=== PATIENT | male | born 1970 | race Caucasian/White ===

== ENCOUNTER → 2017-07-11 | Outpatient (CLI) | payer BC | LOC: PREOP 12:27 | PROVIDERS: ATTEND Surgery | DX: Z01.818 Encounter for other preprocedural examination (principal); L98.9 Disorder of the skin and subcutaneous tissue, unspecified ==

== ENCOUNTER 2017-07-12 09:13 | Day surgery (SDC) | payer BC ==
[~2017-07-12] VITALS: Ht 193 cm; Wt 137.9 kg
[~2017-07-12 09:13] MED LIST: BUPIVACAINE 0.5% 30 ML (SENSORCAINE) VIAL ONE; LIDOCAINE 1% INJ 20 ML (XYLOCAINE) VIAL ONE
[2017-07-12] MEDS ORDERED: MIDAZOLAM 2 MG/2 ML (VERSED) VIAL ONE (09:39)
[2017-07-12] MEDS ORDERED: PROPOFOL INJECTION 50 ML IV ONE (09:39)
[2017-07-12] MEDS ORDERED: fentaNYL INJECTION 100 MCG/2 ML AMP ONE (09:39)
[2017-07-12 09:43] VITALS: BP 136/90
[2017-07-12] MEDS ORDERED: LACTATED RINGERS 1,000 ML IV PRN (09:44)
--- OUTSIDE RECORDS SUMMARY | 2017-07-12 09:45 | XMS REPORT ---
Author Author JUANA MILLIGAN [facility] Address [address] [place], [place] [id number] Care Team Providers Care Food Order Delivery Runner Name Role Phone JUANA MILLIGAN PCP Unavailable Allergies and Adverse Reactions Name Reaction Notes NO KNOWN DRUG ALLERGIES Plan of Treatment Not available. Medications Active Name Start Date Estimated Completion Date SIG Comments simvastatin 80 mg oral tablet 06/09/2014 TAKE 1 TABLET BY MOUTH EVERY EVENING simvastatin 80 mg oral tablet 08/09/2015 TAKE 1 TABLET BY MOUTH EVERY EVENING lisinopril-hydrochlorothiazide 20-12.5 mg oral tablet 08/09/2015 TAKE 1 TABLET BY ORAL ROUTE 2 TIMES A DAY FOR 90 DAYS Xigduo XR 5-1,000 mg oral tablet, IR - ER, biphasic 24hr 09/29/2015 take 1 tablet by oral route once daily in the morning with food Keflex 500 mg oral capsule 12/20/2015 one PO TID fluticasone 50 mcg/actuation nasal spray,suspension 12/20/2015 inhale 1 spray (50 mcg) in each nostril by intranasal route 2 times per day fluticasone 50 mcg/actuation nasal spray,suspension 12/20/2015 inhale 1 spray (50 mcg) in each nostril by intranasal route 2 times per day Name Start Date Expiration Date SIG Comments Keflex 500 mg oral capsule 09/22/2010 10/02/2010 take 1 capsule by oral route 3 times a day for 10 days Zocor 80 mg oral tablet 10/18/2010 04/16/2011 take 1 tablet (80 mg) by oral route once daily in the evening for 90 days valacyclovir 500 mg oral tablet 05/18/2011 USE DIRECTED Medrol (Carter) 4 mg oral tablets,dose pack 11/10/2011 11/16/2011 take as directed for 6 days Zithromax Z-Carter 250 mg oral tablet 08/21/2012 08/26/2012 take 2 tablets ( 500 mg) by oral route once daily for 1 day then 1 tablet (250 mg) by oral route once daily for 4 days lisinopril-hydrochlorothiazide 20-12.5 mg oral tablet 06/17/2014 06/12/2015 take 1 tablet by oral route 2 times a day for 90 days Contrave 8-90 mg oral tablet extended release 01/12/2015 04/12/2015 take 2 tablets by oral route 2 times per day in the morning and evening for 30 days Zithromax Z-Carter 250 mg oral tablet 05/26/2015 05/31/2015 take 2 tablets (500 mg) by oral route once daily for 1 day then 1 tablet (250 mg) by oral route once daily for 4 days Medrol (Carter) 4 mg oral tablets,dose pack 05/26/2015 05/31/2015 take as directed for 5 days Keflex 500 mg oral capsule 06/11/2015 06/21/2015 take 1 capsule by oral route every 8 hours for 10 days Discontinued Name Start Date Discontinued Date SIG Comments pravastatin 40 mg oral tablet 10/04/2010 10/18/2010 TAKE 1 &1/2 TABLETS BY MOUTH EVERY DAY Problem List Description Status Onset Hypertension Active Diabetes Mellitus, Type II Active Herpes Simplex Of Lip, History Active Hyperlipidemia Active Vital Signs Date Time BP-Sys(mm[Hg] BP-Anali(mm[Hg]) HR(bpm) RR(rpm) Temp WT HT HC BMI BSA BMI Percentile O2 Sat(%) 12/20/2015 1:41:00 PM 148 mmHg 95 mmHg 80 bpm 16 rpm 98.4 F 305 lbs 76 in 37.13 kg/m2 2.72 m2 96 % 09/28/2015 10:08:00 AM 142 mmHg 98 mmHg 104 bpm 18 rpm 98.2 F 316 lbs 76 in 38.4643 kg/m 2.7724 m 98 % 01/11/2015 1:53:00 PM 140 mmHg 90 mmHg 72 bpm 18 rpm 98 F 317 lbs 76 in 38.59 kg/m2 2.78 m2 98 % 10/02/2013 2:13:00 PM 134 mmHg 78 mmHg 86 bpm 18 rpm 98.6 F 307 lbs 74 in 39.4161 kg/m 2.6964 m 98 % 05/28/2013 9:56:00 AM 144 mmHg 80 mmHg 80 bpm 20 rpm 98.4 F 304 lbs 74 in 39.03 kg/m2 2.68 m2 98 % 04/08/2013 8:35:00 AM 128 mmHg 80 mmHg 81 bpm 16 rpm 97.3 F 303.5 lbs 74 in 38.9667 kg/m 2.681 m 98 % 11/06/2012 9:38:00 AM 142 mmHg 82 mmHg 76 bpm 16 rpm 98 F 314.5 lbs 74 in 40.38 kg/m2 2.73 m2 98 % 10/07/2012 1:30:00 PM 144 mmHg 80 mmHg 100 bpm 20 rpm 98 F 324.312 lbs 74 in 41.6388 kg/m 2.7714 m 98 % 08/21/2012 9:21:00 AM 152 mmHg 80 mmHg 74 bpm 18 rpm 97.4 F 326 lbs 74 in 41.86 kg/m2 2.78 m2 99 % 11/03/2010 10:58:00 AM 144 mmHg 90 mmHg 80 bpm 316 lbs Social History Name Description Comments Tobacco Never smoker Alcohol Use some college Active but no formal exercise Uses seatbelts History of Procedures Date Ordered Description Order Status 05/22/2011 12:00 AM ROUTINE VENIPUNCTURE Reviewed 05/22/2011 12:00 AM COMPLETE CBC W/AUTO DIFF WBC Reviewed 05/22/2011 12:00 AM COMPREHEN METABOLIC PANEL Reviewed 05/22/2011 12:00 AM LIPID PANEL Reviewed 10/02/2012 12:00 AM ROUTINE VENIPUNCTURE Reviewed 10/02/2012 12:00 AM GLYCOSYLATED HEMOGLOBIN TEST Reviewed 10/02/2012 12:00 AM COMPLETE CBC W/AUTO DIFF WBC Reviewed 10/02/2012 12:00 AM COMPREHEN METABOLIC PANEL Reviewed 10/02/2012 12:00 AM LIPID PANEL Reviewed 11/06/2012 12:00 AM CAPILLARY BLOOD DRAW Reviewed 11/06/2012 12:00 AM GLUCOSE BLOOD TEST Reviewed 11/06/2012 12:00 AM GLUCOSE BLOOD TEST Reviewed 04/01/2013 12:00 AM ROUTINE VENIPUNCTURE Reviewed 04/01/2013 12:00 AM GLYCOSYLATED HEMOGLOBIN TEST Reviewed 04/01/2013 12:00 AM COMPREHEN METABOLIC PANEL Reviewed 04/01/2013 12:00 AM LIPID PANEL Reviewed 04/01/2013 12:00 AM GLUCOSE BLOOD TEST Reviewed 04/01/2013 12:00 AM GLUCOSE BLOOD TEST Reviewed 10/02/2013 12:00 AM URINALYSIS AUTO W/O SCOPE Reviewed 10/02/2013 12:00 AM URINALYSIS AUTO W/O SCOPE Reviewed 11/10/2013 12:00 AM COMPLETE CBC W/AUTO DIFF WBC Reviewed 11/10/2013 12:00 AM COMPREHEN METABOLIC PANEL Reviewed 11/10/2013 12:00 AM GLYCOSYLATED HEMOGLOBIN TEST Reviewed 11/10/2013 12:00 AM LIPID PANEL Reviewed 11/10/2013 12:00 AM MICROALBUMIN QUANTITATIVE Reviewed 10/04/2010 12:00 AM ROUTINE VENIPUNCTURE Reviewed 10/04/2010 12:00 AM COMPLETE CBC W/AUTO DIFF WBC Reviewed 10/04/2010 12:00 AM COMPREHEN METABOLIC PANEL Reviewed 10/04/2010 12:00 AM LIPID PANEL Reviewed 01/05/2015 12:00 AM COMPLETE CBC W/AUTO DIFF WBC Returned 01/05/2015 12:00 AM COMPREHEN METABOLIC PANEL Returned 01/05/2015 12:00 AM GLYCOSYLATED HEMOGLOBIN TEST Returned 01/05/2015 12:00 AM LIPID PANEL Returned 01/05/2015 12:00 AM ROUTINE VENIPUNCTURE Reviewed Results Summary Data and Description Results 10/04/2010 3:48 PM TRIGLYCERIDES 211.0 mg/dLCHOLESTEROL 242.0 mg/dLHDL 44.0 mg/ dLLDL 164.0 mg/dLGLUCOSE 114.0 mg/dLSODIUM 137.0 mmol/LPOTASSIUM 4.40 mmol/ LCHLORIDE 103.0 mmol/LCO2 22.0 mmol/LBUN 16.0 mg/dLCREATININE 0.90 mg/dLSGOT/ AST 21.0 IU/LSGPT/ALT 38.0 IU/LALK PHOS 60.0 IU/LTOTAL PROTEIN 7.0 g/dLALBUMIN 4.30 g/dLTOTAL BILI 0.60 mg/dLCALCIUM 9.80 mg/dLeGFR >60 mL/min/1.73 m2WBC 6.2 RBC 5.33 HGB 15.20 g/dLHCT 43.40 %MCV 81.0 fLMCH 28.50 pgMCHC 35.0 g/dLRDW CV 13.0 %MPV 11.0 fLPLT 194 %NEUT 62.60 %%LYMP 27.10 %%MONO 8.70 %%EOS 1.10 %%BASO 0.50 %#NEUT 3.88 #LYMP 1.68 #MONO 0.54 #EOS 0.07 #BASO 0.03 05/22/2011 4:29 PM WBC 6.6 RBC 4.82 HGB 14.30 g/dLHCT 40.0 %MCV 83.0 fLMCH 29.70 pgMCHC 35.80 g/dLRDW CV 12.90 %MPV 11.60 fLPLT 190 %NEUT 62.20 %%LYMP 28.90 %%MONO 7.20 %%EOS 1.40 %%BASO 0.30 %#NEUT 4.13 #LYMP 1.92 #MONO 0.48 #EOS 0.09 #BASO 0.02 GLUCOSE 125.0 mg/dLSODIUM 139.0 mmol/LPOTASSIUM 4.10 mmol/ LCHLORIDE 105.0 mmol/LCO2 20.0 mmol/LBUN 16.0 mg/dLCREATININE 0.90 mg/dLSGOT/ AST 16.0 IU/LSGPT/ALT 25.0 IU/LALK PHOS 59.0 IU/LTOTAL PROTEIN 6.90 g/dLALBUMIN 4.20 g/dLTOTAL BILI 0.40 mg/dLCALCIUM 9.80 mg/dLeGFR >60 mL/min/1.73 [id number] 226.0 mg/dLCHOLESTEROL 207.0 mg/dLHDL 41.0 mg/dLLDL (CALC) 121.0 mg/dL 10/02/2012 10:00 AM WBC 7.7 RBC 5.20 HGB 14.80 g/dLHCT 42.60 %MCV 82.0 fLMCH 28.50 pgMCHC 34.70 g/dLRDW CV 12.90 %MPV 10.70 fLPLT 198 %NEUT 71.20 %%LYMP 21.10 %%MONO 6.10 %%EOS 1.30 %%BASO 0.30 %#NEUT 5.50 #LYMP 1.63 #MONO 0.47 #EOS 0.10 #BASO 0.02 GLUCOSE 159.0 mg/dLSODIUM 141.0 mmol/LPOTASSIUM 3.90 mmol/ LCHLORIDE 105.0 mmol/LCO2 23.0 mmol/LBUN 19.0 mg/dLCREATININE 1.0 mg/dLSGOT/AST 16.0 IU/LSGPT/ALT 28.0 IU/LALK PHOS 59.0 IU/LTOTAL PROTEIN 7.0 g/dLALBUMIN 4.50 g/dLTOTAL BILI 0.70 mg/dLCALCIUM 9.70 mg/dLeGFR 60 TRIGLYCERIDES 236.0 mg/ dLCHOLESTEROL 247.0 mg/dLHDL 38.0 mg/dLLDL 170.0 mg/dL 04/01/2013 3:41 PM TRIGLYCERIDES 184.0 mg/dLCHOLESTEROL 202.0 mg/dLHDL 40.0 mg/ dLLDL 132.0 mg/dLGLUCOSE 123.0 mg/dLSODIUM 141.0 mmol/LPOTASSIUM 3.80 mmol/ LCHLORIDE 107.0 mmol/LCO2 24.0 mmol/LBUN 19.0 mg/dLCREATININE 0.80 mg/dLSGOT/ AST 16.0 IU/LSGPT/ALT 23.0 IU/LALK PHOS 51.0 IU/LTOTAL PROTEIN 6.90 g/dLALBUMIN 4.10 g/dLTOTAL BILI 0.80 mg/dLCALCIUM 9.60 mg/dLeGFR 60 HGB A1C 6.0 %Est Avg Glucose 125.5 mg/dL 11/10/2013 3:53 PM CREAT UR 193.10 mg/dLMICROALBUMIN UR 75.0 ug/mLALB:CREAT RATIO 39 TRIGLYCERIDES 164.0 mg/dLCHOLESTEROL 196.0 mg/dLHDL 43.0 mg/dLLDL 112.0 mg/dLGLUCOSE 134.0 mg/dLSODIUM 140.0 mmol/LPOTASSIUM 3.90 mmol/LCHLORIDE 104.0 mmol/LCO2 24.0 mmol/LBUN 16.0 mg/dLCREATININE 0.90 mg/dLSGOT/AST 19.0 IU/ LSGPT/ALT 31.0 IU/LALK PHOS 57.0 IU/LTOTAL PROTEIN 7.0 g/dLALBUMIN 4.40 g/ dLTOTAL BILI 0.60 mg/dLCALCIUM 10.20 mg/dLeGFR >60 mL/min/1.73 m2WBC 7.7 RBC 5.21 HGB 15.0 g/dLHCT 42.50 %MCV 82.0 fLMCH 28.80 pgMCHC 35.30 g/dLRDW CV 13.20 %MPV 10.90 fLPLT 178 %NEUT 62.50 %%LYMP 28.10 %%MONO 7.20 %%EOS 1.90 %%BASO 0.30 %#NEUT 4.83 #LYMP 2.17 #MONO 0.56 #EOS 0.15 #BASO 0.02 EOS 1.0 %HGB A1C 5.80 %Est Avg Glucose 119.8 mg/dL 01/05/2015 3:20 PM WBC 6.8 RBC 5.24 HGB 15.0 g/dLHCT 43.40 %MCV 83.0 fLMCH 28.60 pgMCHC 34.60 g/dLRDW CV 13.10 %MPV 10.70 fLPLT 180 %NEUT 63.80 %%LYMP 26.80 %%MONO 7.60 %%EOS 1.50 %%BASO 0.30 %#NEUT 4.31 #LYMP 1.81 #MONO 0.51 #EOS 0.10 #BASO 0.02 TRIGLYCERIDES 240.0 mg/dLCHOLESTEROL 222.0 mg/dLHDL 40.0 mg/ dLLDL 142.0 mg/dLGLUCOSE 145.0 mg/dLSODIUM 142.0 mmol/LPOTASSIUM 4.30 mmol/ LCHLORIDE 104.0 mmol/LCO2 26.0 mmol/LBUN 16.0 mg/dLCREATININE 1.0 mg/dLSGOT/AST 14.0 IU/LSGPT/ALT 25.0 IU/LALK PHOS 59.0 IU/LTOTAL PROTEIN 7.20 g/dLALBUMIN 3.70 g/dLTOTAL BILI 0.80 mg/dLCALCIUM 9.80 mg/dLeGFR >60 mL/min/1.73 m2HGB A1C 6.0 %Est Avg Glucose 125.5 mg/dL History Of Immunizations Not available. History of Past Illness Name Date of Onset Comments Hypertension Diabetes Mellitus, Type II Herpes Simplex Of Lip, History Hyperlipidemia Coronary Artery Disease Oct 04 2010 8:49AM Hypertension Oct 04 2010 8:49AM Hyperlipidemia Oct 04 2010 8:49AM Essential Hypertension Nov 03 2010 10:59AM Diabetes Mellitus, Type II Nov 03 2010 10:59AM Hyperlipidemia, unspecified Nov 03 2010 10:59AM General Medical Exam, Adult Nov 03 2010 10:59AM Body Mass Index [BMI]; body mass index between 30-39, adult; body mass index 30.0-30.9, adult Nov 03 2010 10:59AM Coronary Artery Disease May 22 2011 8:35AM Hypertension May 22 2011 8:35AM Cough Aug 21 2012 9:22AM Post-nasal drainage Aug 21 2012 9:22AM Upper Respiratory Infection Aug 21 2012 9:22AM Hypertension Oct 02 2012 12:42PM Diabetes Mellitus, Type II Oct 02 2012 12:42PM Hyperlipidemia Oct 02 2012 12:42PM Essential Hypertension Oct 07 2012 1:30PM Diabetes Mellitus, Type II Oct 07 2012 1:30PM Hyperlipidemia, unspecified Oct 07 2012 1:30PM Obesity Oct 07 2012 1:30PM Essential Hypertension Nov 06 2012 9:39AM Diabetes Mellitus, Type II Nov 06 2012 9:39AM Hyperlipidemia, unspecified Nov 06 2012 9:39AM Exercise Counseling Nov 06 2012 9:39AM Dietary Counseling Nov 06 2012 9:39AM Hypertension Apr 01 2013 8:40AM Diabetes Mellitus, Type II Apr 01 2013 8:40AM Hyperlipidemia Apr 01 2013 8:40AM Essential Hypertension Apr 08 2013 8:38AM Diabetes Mellitus, Type II Apr 08 2013 8:38AM Hyperlipidemia, unspecified Apr 08 2013 8:38AM Obesity Apr 08 2013 8:38AM Exercise Counseling Apr 08 2013 8:38AM Dietary Counseling Apr 08 2013 8:38AM Diabetes Mellitus, Type II May 28 2013 9:56AM Cellulitis May 28 2013 9:56AM Open wound of knee, leg [except thigh], and ankle; without mention of complication May 28 2013 9:56AM DOT Physical Oct 02 2013 1:55PM Hypertension Nov 10 2013 9:51AM Diabetes Mellitus, Type II Nov 10 2013 9:51AM Hyperlipidemia Nov 10 2013 9:51AM Hypertension Jan 05 2015 11:34AM Diabetes Mellitus, Type II Jan 05 2015 11:34AM Hyperlipidemia Jan 05 2015 11:34AM Dietary Counseling Jan 11 2015 1:54PM Exercise Counseling Jan 11 2015 1:54PM Body Mass Index [BMI]; body mass index between 30-39, adult; body mass index 32.0-32.9, adult Jan 11 2015 1:54PM Hypertension Jan 11 2015 1:54PM Diabetes Mellitus, Type II Jan 11 2015 1:54PM Hyperlipidemia Jan 11 2015 1:54PM Abscess Of Trunk Jul 12 2015 12:08PM Sebaceous Cyst, Mid-back Aug 23 2015 10:20AM Postoperative Follow-up Sep 06 2015 8:58AM DOT Physical Sep 28 2015 10:08AM Acute pharyngitis, unspecified etiology Dec 20 2015 1:42PM Nasal congestion Dec 20 2015 1:42PM Hypertension Feb 10 2016 8:36AM Diabetes Mellitus, Type II Feb 10 2016 8:36AM Hyperlipidemia Feb 10 2016 8:36AM Payers Insurance Name Company Name Plan Name Plan Number Policy Number Policy Group Number Start Date BCBS [facility]c[employer] [facility] [id number] N/A History of Encounters Visit Date Visit Type Provider 02/10/2016 Office visit JUANA MACKAY 12/20/2015 Office visit JUANA MACKAY 09/28/2015 Office visit JUANA MACKAY 09/06/2015 Office visit Juana Shoemaker MD 08/23/2015 Office visit Juana Shoemaker MD 07/12/2015 Procedures Juana Shoemaker MD 01/11/2015 Office visit JUANA MACKAY 01/05/2015 Office visit JUANA MACKAY 11/10/2013 Office visit JUANA MACKAY 10/02/2013 Office visit JUANA MACKAY 05/28/2013 Office visit JUANA MACKAY 04/08/2013 Office visit JUANA MACKAY 04/01/2013 Office visit JUANA MACKAY 11/06/2012 Office visit JUANA MACKAY 10/07/2012 Office visit JUANA MACKAY 10/02/2012 Office visit JUANA MACKAY 08/21/2012 Office visit JUANA MACKAY 05/22/2011 Office visit Juana Milligan PA-C 11/03/2010 Office visit Juana Milligan PA-C 10/04/2010 Office visit Juana MACKAY-C 08/12/2009 Laboratory Juana Milligan PA-C 08/12/2009 Laboratory Juana Milligan PA-C 05/20/2009 Office visit JUANA MACKAY
--- OUTSIDE RECORDS SUMMARY | 2017-07-12 09:46 | XMS REPORT ---
Author Author PHIL MILLIGAN [facility] Address [address] [place], [place] [id number] Care Team Providers Care Safety Net Maker Name Role Phone PHIL MILLIGAN PCP Unavailable PHIL MILLIGAN PreferredProvider Unavailable Allergies and Adverse Reactions Name Reaction [...] once daily in the morning with food fluticasone 50 mcg/actuation nasal spray,suspension 12/20/2015 inhale 1 spray (50 mcg) in each nostril by intranasal route 2 times per day Contour Next Strips miscellaneous strip 04/06/2016 use as directed test once daily Microlet Lancet miscellaneous misc 04/06/2016 use as directed test once daily Xigduo XR 5-1,000 mg oral tablet, IR - ER, biphasic 24hr 08/14/2016 TAKE 1 TABLET BY MOUTH EVERY MORNING WITH FOOD simvastatin 80 mg oral tablet 09/14/2016 TAKE 1 TABLET BY MOUTH EVERY EVENING lisinopril-hydrochlorothiazide 20-12.5 mg oral tablet 09/20/2016 TAKE 1 TABLET BY ORAL ROUTE 2 TIMES A DAY FOR 90 DAYS Name Start Date Expiration Date SIG Comments [...] 1 &1/2 TABLETS BY MOUTH EVERY DAY Keflex 500 mg oral capsule 12/20/2015 02/13/2016 one PO TID Problem List Description Status Onset Hypertension Active Diabetes Mellitus, Type II Active Herpes Simplex Of Lip, History Active Hyperlipidemia Active Cramp of both lower extremities Active 02/13/2016 Microalbuminuria due to type 2 diabetes mellitus Active 02/13/2016 Vital Signs Date Time BP-Sys(mm[Hg] BP-Anali(mm[Hg]) HR(bpm) RR(rpm) Temp WT HT HC BMI BSA BMI Percentile O2 Sat(%) 09/21/2016 10:10:00 AM 140 mmHg 90 mmHg 76 bpm 18 rpm 96.5 F 308 lbs 74 in 39.54 kg/m2 2.70 m2 98 % 02/10/2016 8:58:00 AM 132 mmHg 80 mmHg 80 bpm 18 rpm 97.2 F 303 lbs 74 in 38.9025 kg/m 2.6788 m 97 % 12/20/2015 1:41:00 PM 148 mmHg 95 mmHg [...] Reviewed 05/22/2011 12:00 AM LIPID PANEL Reviewed 07/05/2016 12:00 AM CALCULUS SPECTROSCOPY Returned 10/02/2012 12:00 AM ROUTINE VENIPUNCTURE Reviewed 10/02/2012 [...] AM COMPLETE CBC W/AUTO DIFF WBC Reviewed 01/05/2015 12:00 AM COMPREHEN METABOLIC PANEL Reviewed 01/05/2015 12:00 AM GLYCOSYLATED HEMOGLOBIN TEST Reviewed 01/05/2015 12:00 AM LIPID PANEL Reviewed 01/05/2015 12:00 AM ROUTINE VENIPUNCTURE Reviewed Results Summary Data and Description Results 10/04/2010 3:48 PM TRIGLYCERIDES 211.0 mg/dLCHOLESTEROL 242.0 mg/dLHDL 44.0 mg/ dLTOT CHOL/HDL 5.5 LDL 164.0 mg/dLGLUCOSE 114.0 mg/dLSODIUM 137.0 mmol/ LPOTASSIUM 4.40 mmol/LCHLORIDE 103.0 mmol/LCO2 22.0 mmol/LBUN 16.0 mg/ dLCREATININE 0.90 mg/dLSGOT/AST 21.0 IU/LSGPT/ALT 38.0 IU/LALK PHOS 60.0 IU/ LTOTAL PROTEIN 7.0 g/dLALBUMIN 4.30 g/dLTOTAL BILI 0.60 mg/dLCALCIUM 9.80 mg/ dLAGE 40 GFR NonAA 70 GFR AA 85 eGFR >60 mL/min/1.73 m2eGFR AA* >60 WBC 6.2 RBC 5.33 HGB 15.20 g/dLHCT 43.40 %MCV 81.0 fLMCH 28.50 pgMCHC 35.0 g/dLRDW SD 38 RDW CV 13.0 %MPV 11.0 fLPLT 194 NRBC# 0.00 NRBC% 0.0 %NEUT 62.60 %%LYMP 27.10 %% MONO 8.70 %%EOS 1.10 %%BASO 0.50 %#NEUT 3.88 #LYMP 1.68 #MONO 0.54 #EOS 0.07 # BASO 0.03 MANUAL DIFF NOT IND 05/22/2011 4:29 PM WBC 6.6 RBC 4.82 HGB 14.30 g/dLHCT 40.0 %MCV 83.0 fLMCH 29.70 pgMCHC 35.80 g/dLRDW SD 39 RDW CV 12.90 %MPV 11.60 fLPLT 190 NRBC# 0.00 NRBC% 0.0 %NEUT 62.20 %%LYMP 28.90 %%MONO 7.20 %%EOS 1.40 %%BASO 0.30 %#NEUT 4.13 #LYMP 1.92 #MONO 0.48 #EOS 0.09 #BASO 0.02 MANUAL DIFF NOT IND GLUCOSE 125.0 mg/dLSODIUM 139.0 mmol/LPOTASSIUM 4.10 mmol/LCHLORIDE 105.0 mmol/LCO2 20.0 mmol/LBUN 16.0 mg/dLCREATININE 0.90 mg/dLSGOT/AST 16.0 IU/LSGPT/ALT 25.0 IU /LALK PHOS 59.0 IU/LTOTAL PROTEIN 6.90 g/dLALBUMIN 4.20 g/dLTOTAL BILI 0.40 mg/ dLCALCIUM 9.80 mg/dLAGE 40 GFR NonAA 70 GFR AA 85 eGFR >60 mL/min/1.73 m2eGFR AA * >60 TRIGLYCERIDES 226.0 mg/dLCHOLESTEROL 207.0 mg/dLHDL 41.0 mg/dLTOT CHOL/ HDL 5.0 LDL (CALC) 121.0 mg/dL 10/02/2012 10:00 AM WBC 7.7 RBC 5.20 HGB 14.80 g/dLHCT 42.60 %MCV 82.0 fLMCH 28.50 pgMCHC 34.70 g/dLRDW SD 39 RDW CV 12.90 %MPV 10.70 fLPLT 198 NRBC# 0.00 NRBC% 0.0 %NEUT 71.20 %%LYMP 21.10 %%MONO 6.10 %%EOS 1.30 %%BASO 0.30 %#NEUT 5.50 #LYMP 1.63 #MONO 0.47 #EOS 0.10 #BASO 0.02 MANUAL DIFF NOT IND GLYCOHEMOGLOBIN A1C 7.30 %GLUCOSE 159.0 mg/dLSODIUM 141.0 mmol/LPOTASSIUM 3.90 mmol/LCHLORIDE 105.0 mmol/LCO2 23.0 mmol/LBUN 19.0 mg/dLCREATININE 1.0 mg/dLSGOT /AST 16.0 IU/LSGPT/ALT 28.0 IU/LALK PHOS 59.0 IU/LTOTAL PROTEIN 7.0 g/dLALBUMIN 4.50 g/dLTOTAL BILI 0.70 mg/dLCALCIUM 9.70 mg/dLAGE 42 GFR NonAA 61 GFR AA 74 eGFR 60 eGFR AA* 60 TRIGLYCERIDES 236.0 mg/dLCHOLESTEROL 247.0 mg/dLHDL 38.0 mg/ dLTOT CHOL/HDL 6.5 LDL 170.0 mg/dL 04/01/2013 3:41 PM TRIGLYCERIDES 184.0 mg/dLCHOLESTEROL 202.0 mg/dLHDL 40.0 mg/ dLTOT CHOL/HDL 5.1 LDL 132.0 mg/dLGLUCOSE 123.0 mg/dLSODIUM 141.0 mmol/ LPOTASSIUM 3.80 mmol/LCHLORIDE 107.0 mmol/LCO2 24.0 mmol/LBUN 19.0 mg/ dLCREATININE 0.80 mg/dLSGOT/AST 16.0 IU/LSGPT/ALT 23.0 IU/LALK PHOS 51.0 IU/ LTOTAL PROTEIN 6.90 g/dLALBUMIN 4.10 g/dLTOTAL BILI 0.80 mg/dLCALCIUM 9.60 mg/ dLAGE 42 GFR NonAA 107 GFR AA 130 eGFR 60 eGFR AA* 60 HGB A1C 6.0 %Est Avg Glucose 125.5 mg/dL 11/10/2013 3:53 PM CREAT UR 193.10 mg/dLMICROALBUMIN UR 75.0 ug/mLALB:CREAT RATIO 39 TRIGLYCERIDES 164.0 mg/dLCHOLESTEROL 196.0 mg/dLHDL 43.0 mg/dLTOT CHOL/ HDL 4.6 LDL 112.0 mg/dLGLUCOSE 134.0 mg/dLSODIUM 140.0 mmol/LPOTASSIUM 3.90 mmol /LCHLORIDE 104.0 mmol/LCO2 24.0 mmol/LBUN 16.0 mg/dLCREATININE 0.90 mg/dLSGOT/ AST 19.0 IU/LSGPT/ALT 31.0 IU/LALK PHOS 57.0 IU/LTOTAL PROTEIN 7.0 g/dLALBUMIN 4.40 g/dLTOTAL BILI 0.60 mg/dLCALCIUM 10.20 mg/dLAGE 43 GFR NonAA 93 GFR AA 113 eGFR >60 mL/min/1.73 m2eGFR AA* >60 WBC 7.7 RBC 5.21 HGB 15.0 g/dLHCT 42.50 % MCV 82.0 fLMCH 28.80 pgMCHC 35.30 g/dLRDW SD 39 RDW CV 13.20 %MPV 10.90 fLPLT 178 NRBC# 0.06 NRBC% 0.8 %NEUT 62.50 %%LYMP 28.10 %%MONO 7.20 %%EOS 1.90 %%BASO 0.30 %#NEUT 4.83 #LYMP 2.17 #MONO 0.56 #EOS 0.15 #BASO 0.02 MANUAL DIFF SEE BELOW SEGS 68 LYMPHS 27 MONOS 4 EOS 1.0 %HGB A1C 5.80 %Est Avg Glucose 119.8 mg/ dL 01/05/2015 3:20 PM WBC 6.8 RBC 5.24 HGB 15.0 g/dLHCT 43.40 %MCV 83.0 fLMCH 28.60 pgMCHC 34.60 g/dLRDW SD 39 RDW CV 13.10 %MPV 10.70 fLPLT 180 NRBC# 0.00 NRBC% 0.0 %NEUT 63.80 %%LYMP 26.80 %%MONO 7.60 %%EOS 1.50 %%BASO 0.30 %#NEUT 4.31 #LYMP 1.81 #MONO 0.51 #EOS 0.10 #BASO 0.02 MANUAL DIFF NOT IND TRIGLYCERIDES 240.0 mg/dLCHOLESTEROL 222.0 mg/dLHDL 40.0 mg/dLTOT CHOL/HDL 5.6 LDL 142.0 mg/dLGLUCOSE 145.0 mg/dLSODIUM 142.0 mmol/LPOTASSIUM 4.30 mmol/ LCHLORIDE 104.0 mmol/LCO2 26.0 mmol/LBUN 16.0 mg/dLCREATININE 1.0 mg/dLSGOT/AST 14.0 IU/LSGPT/ALT 25.0 IU/LALK PHOS 59.0 IU/LTOTAL PROTEIN 7.20 g/dLALBUMIN 3.70 g/dLTOTAL BILI 0.80 mg/dLCALCIUM 9.80 mg/dLAGE 44 GFR NonAA 82 GFR AA 99 eGFR >60 mL/min/1.73 m2eGFR AA* >60 HGB A1C 6.0 %Est Avg Glucose 125.5 mg/dL 02/10/2016 4:00 PM WBC 6.3 RBC 5.43 HGB 15.30 g/dLHCT 45.50 %MCV 84.0 fLMCH 28.20 pgMCHC 33.60 g/dLRDW SD 40 RDW CV 13.10 %MPV 10.50 fLPLT 187 NRBC# 0.00 NRBC% 0.0 %NEUT 67.80 %%LYMP 22.80 %%MONO 7.30 %%EOS 1.30 %%BASO 0.50 %#NEUT 4.24 #LYMP 1.43 #MONO 0.46 #EOS 0.08 #BASO 0.03 MANUAL DIFF NOT IND MICROALBUMIN UR 59.0 ug/mLGLUCOSE 146.0 mg/dLSODIUM 140.0 mmol/LPOTASSIUM 4.30 mmol/LCHLORIDE 103.0 mmol/LCO2 27.0 mmol/LBUN 20.0 mg/dLCREATININE 0.90 mg/ dLSGOT/AST 19.0 IU/LSGPT/ALT 34.0 IU/LALK PHOS 57.0 IU/LTOTAL PROTEIN 6.70 g/ dLALBUMIN 4.70 g/dLTOTAL BILI 0.70 mg/dLCALCIUM 9.60 mg/dLAGE 45 GFR NonAA 92 GFR AA 112 eGFR >60 mL/min/1.73meGFR AA* >60 TRIGLYCERIDES 198.0 mg/ dLCHOLESTEROL 259.0 mg/dLHDL 48.0 mg/dLTOT CHOL/HDL 5.4 LDL 175.0 mg/ dLHemoglobin A1c 6.50 %Estim. Avg Glu (eAG) 140 07/05/2016 3:40 PM Color [place] Size 5x3x2 Weight 34.3 Ca oxalate dihydrate POINT OF CARE SPECIALIST %Ca oxalate monohydr. POINT OF CARE SPECIALIST RatioCalcium phosphate POINT OF CARE SPECIALIST %Magnesium damian phos POINT OF CARE SPECIALIST Uric acid 100 Uric acid dihydrate POINT OF CARE SPECIALIST RatioAmmonium acid urate POINT OF CARE SPECIALIST %Sodium acid urate POINT OF CARE SPECIALIST Ca hydrogen phos. POINT OF CARE SPECIALIST %Cystine POINT OF CARE SPECIALIST %Cholesterol POINT OF CARE SPECIALIST %Calcium bilirubinate POINT OF CARE SPECIALIST %Calcium carbonate POINT OF CARE SPECIALIST %Triamterene POINT OF CARE SPECIALIST %Newberyite POINT OF CARE SPECIALIST %Dried Blood POINT OF CARE SPECIALIST Cellular Material POINT OF CARE SPECIALIST Shell POINT OF CARE SPECIALIST Surface Crystals POINT OF CARE SPECIALIST Comment POINT OF CARE SPECIALIST Comment POINT OF CARE SPECIALIST History Of Immunizations Not available. History of [...] index 30.0-30.9, adult Nov 03 2010 10:59AM Cramp of both lower extremities 02/13/2016 Microalbuminuria due to type 2 diabetes mellitus 02/13/2016 Coronary Artery Disease May 22 2011 8:35AM [...] 2016 8:36AM Hyperlipidemia Feb 10 2016 8:36AM Type 2 diabetes mellitus without complication Feb 10 2016 8:59AM Morbid obesity due to excess calories Feb 10 2016 8:59AM Dietary Counseling Feb 10 2016 8:59AM Exercise Counseling Feb 10 2016 8:59AM Hypertension Feb 10 2016 8:59AM Hyperlipidemia Feb 10 2016 8:59AM Cramp of both lower extremities Feb 10 2016 8:59AM Acute Microalbuminuria due to type 2 diabetes mellitus Feb 10 2016 8:59AM Calculus (=stone) Jul 05 2016 8:49AM Encounter for CDL (commercial driving license) exam Sep 21 2016 10:10AM Payers Insurance Name Company Name Plan Name Plan Number Policy Number Policy Group Number Start Date [employer] [place] [id number] N/A [employer] [place] [id number] N/A History of Encounters Visit Date Visit Type Provider 09/21/2016 Office visit PHIL MACKAY 02/10/2016 Office visit PHIL MACKAY 12/20/2015 Office visit PHIL MACKAY 09/28/2015 Office visit PHIL MACKAY 09/06/2015 Office visit Phil Shoemaker MD 08/23/2015 Office visit Phil Shoemaker MD 07/12/2015 Procedures Phil Shoemaker MD 01/11/2015 Office visit PHIL MACKAY 01/05/2015 Office visit PHIL MACKAY 11/10/2013 Office visit PHIL MACKAY 10/02/2013 Office visit PHIL MACKAY 05/28/2013 Office visit PHIL MACKAY 04/08/2013 Office visit PHIL MACKAY 04/01/2013 Office visit PHIL MACKAY 11/06/2012 Office visit PHIL MACKAY 10/07/2012 Office visit PHIL MILLIGAN PA 10/02/2012 Office visit PHIL MACKAY 08/21/2012 Office visit PHIL MACKAY 05/22/2011 Office visit Phil Milligan PA-C 11/03/2010 Office visit Phil Milligan PA-C 10/04/2010 Office visit Phil Milligan PA-C 08/12/2009 Laboratory Phil Milligan PA-C 08/12/2009 Laboratory Phil Milligan PA-C 05/20/2009 Office visit PHIL MACKAY
--- OUTSIDE RECORDS SUMMARY | 2017-07-12 09:47 | XMS REPORT ---
Author Author JUANA MILLIGAN [facility] Address [address] [place], [place] [address] Care Team Providers Care Lineman Service Or Work Dispatcher Name Role Phone JUANA MILLIGAN PCP Unavailable [...] once daily in the morning with food Name Start Date Expiration Date SIG Comments [...] HC BMI BSA BMI Percentile O2 Sat(%) 09/28/2015 10:08:00 AM 142 mmHg 98 mmHg 104 bpm 18 rpm 98.2 F 316 lbs 76 in 38.46 kg/m2 2.77 m2 98 % 01/11/2015 1:53:00 PM 140 mmHg 90 mmHg 72 bpm 18 rpm 98 F 317 lbs 76 in 38.5861 kg/m 2.7767 m 98 % 10/02/2013 2:13:00 PM 134 mmHg 78 mmHg 86 bpm 18 rpm 98.6 F 307 lbs 74 in 39.42 kg/m2 2.70 m2 98 % 05/28/2013 9:56:00 AM 144 mmHg 80 mmHg 80 bpm 20 rpm 98.4 F 304 lbs 74 in 39.0309 kg/m 2.6832 m 98 % 04/08/2013 8:35:00 AM 128 mmHg 80 mmHg 81 bpm 16 rpm 97.3 F 303.5 lbs 74 in 38.97 kg/m2 2.68 m2 98 % 11/06/2012 9:38:00 AM 142 mmHg 82 mmHg 76 bpm 16 rpm 98 F 314.5 lbs 74 in 40.379 kg/m 2.7291 m 98 % 10/07/2012 1:30:00 PM 144 mmHg 80 mmHg 100 bpm 20 rpm 98 F 324.312 lbs 74 in 41.64 kg/m2 2.77 m2 98 % 08/21/2012 9:21:00 AM 152 mmHg 80 mmHg 74 bpm 18 rpm 97.4 F 326 lbs 74 in 41.8555 kg/m 2.7786 m 99 % 11/03/2010 10:58:00 AM 144 mmHg [...] BILI 0.40 mg/dLCALCIUM 9.80 mg/dLeGFR >60 mL/min/1.73 [id number] 226.0 mg/dLCHOLESTEROL 207.0 mg/dLHDL 41.0 mg/dLLDL (CALC) [...] g/dLTOTAL BILI 0.80 mg/dLCALCIUM 9.60 mg/dLeGFR 60 Est Avg Glucose 125.5 mg /dL 11/10/2013 3:53 PM CREAT UR 193.10 mg/dLMICROALBUMIN [...] 0.56 #EOS 0.15 #BASO 0.02 EOS 1.0 %Est Avg Glucose 119.8 mg/dL 01/05/2015 3:20 [...] BILI 0.80 mg/dLCALCIUM 9.80 mg/dLeGFR >60 mL/min/1.73 m2Est Avg Glucose 125.5 mg/dL History Of Immunizations [...] 8:58AM DOT Physical Sep 28 2015 10:08AM Payers Insurance Name Company Name Plan Name Plan Number Policy Number Policy Group Number Start Date [facility] [id number] N/A History of Encounters Visit Date Visit Type Provider 09/28/2015 Office visit JUANA MACKAY 09/06/2015 Office visit Juana Shoemaker MD 08/23/2015 Office visit Juana Shoemaker MD 07/12/2015 Procedures Juana Shoemaker MD 01/11/2015 Office visit JUANA MACKAY 01/05/2015 Office visit JUANA MACKAY 11/10/2013 Office visit JUANA MACKAY 10/02/2013 Office visit JUANA MACKAY 05/28/2013 Office visit JUANA MACKAY 04/08/2013 Office visit JUANA MILLIGAN PA 04/01/2013 Office visit JUANA MILLIGAN PA 11/06/2012 Office visit JUANA MILLIGAN PA 10/07/2012 Office visit JUANA MILLIGAN PA 10/02/2012 Office visit JUANA MILLIGAN PA 08/21/2012 Office visit JUANA MILLIGAN PA 05/22/2011 Office visit Juana Milligan PA-C 11/03/2010 Office visit Juana Milligan PA-C 10/04/2010 Office visit Juana Milligan PA-C 08/12/2009 Laboratory Juana Milligan PA-C 08/12/2009 Laboratory Juana Milligan PA-C 05/20/2009 Office visit JUANA MILLIGAN PA
--- OUTSIDE RECORDS SUMMARY | 2017-07-12 09:47 | XMS REPORT ---
Author Author Juana Shoemaker [facility] Address [address] [place], [place] [id number] Care Team Providers Care Hydraulic Punch Press Operator Name Role Phone Juana Shoemaker PCP Unavailable Allergies and Adverse Reactions Name [...] HC BMI BSA BMI Percentile O2 Sat(%) 01/11/2015 1:53:00 PM 140 mmHg 90 mmHg [...] BILI 0.40 mg/dLCALCIUM 9.80 mg/dLeGFR >60 mL/min/1.73 [id number] 226.0 mg/dLCHOLESTEROL 207.0 mg/dLHDL 41.0 mg/dLLDL (CALC) [...] Sebaceous Cyst, Mid-back Aug 23 2015 10:20AM Payers Insurance Name Company Name Plan Name Plan Number Policy Number Policy Group Number [id number] N/A History of Encounters Visit Date Visit Type Provider 08/23/2015 Office visit Juana Shoemaker MD 07/12/2015 [...] visit JUANA MACKAY 05/22/2011 Office visit Juana ANGELOC 11/03/2010 Office visit Juana Macedo PA-C 10/04/2010 Office visit Juana Macedo PA-C 08/12/2009 Laboratory Juana Macedo PA-C 08/12/2009 Laboratory Juana Macedo PA-C 05/20/2009 Office visit JUANA MACKAY
--- OUTSIDE RECORDS SUMMARY | 2017-07-12 09:48 | XMS REPORT ---
Author Author JUANA MILLIGAN [facility] Address [address] [place], [place] [address] Care Team Providers Care Night Warehouse Manager Name Role Phone JUNAA MILLIGAN PCP Unavailable Allergies and Adverse Reactions [...] BILI 0.40 mg/dLCALCIUM 9.80 mg/dLeGFR >60 mL/min/1.73 [id number] 226.0 mg/dLCHOLESTEROL 207.0 mg/dLHDL 41.0 mg/dLLDL (CALC) [...] 1:42PM Nasal congestion Dec 20 2015 1:42PM Payers Insurance Name Company Name Plan Name Plan Number Policy Number Policy Group Number Start Date BCBS [facility] [place] [id number] N/A History of Encounters Visit Date Visit Type Provider 12/20/2015 Office visit JUANA MACKAY 09/28/2015 Office visit JUANA MILLIGAN PA 09/06/2015 Office visit Juana Shoemaker MD 08/23/2015 Office visit Juana Shoemaker MD 07/12/2015 Procedures Juana Shoemaker MD 01/11/2015 Office visit JUANA MILLIGAN PA 01/05/2015 Office visit JUANA MILLIGAN PA 11/10/2013 Office visit JUANA MILLIGAN PA 10/02/2013 Office visit JUANA MILLIGAN PA 05/28/2013 Office visit JUANA MILLIGAN PA 04/08/2013 Office visit JUANA MILLIGAN PA 04/01/2013 [...]
--- OUTSIDE RECORDS SUMMARY | 2017-07-12 09:49 | XMS REPORT ---
Author Author JUANA MILLIGAN [facility] Address [address] [place], [place] [address] Care Team Providers Care Tariff Inspector Name Role Phone JUANA MILLIGAN PCP Unavailable [...] HC BMI BSA BMI Percentile O2 Sat(%) 02/10/2016 8:58:00 AM 132 mmHg 80 mmHg 80 bpm 18 rpm 97.2 F 303 lbs 74 in 38.90 kg/m2 2.68 m2 97 % 12/20/2015 1:41:00 PM 148 mmHg 95 mmHg 80 bpm 16 rpm 98.4 F 305 lbs 76 in 37.1254 kg/m 2.7237 m 96 % 09/28/2015 10:08:00 AM 142 mmHg [...] BILI 0.40 mg/dLCALCIUM 9.80 mg/dLeGFR >60 mL/min/1.73 [id number] 226.0 mg/dLCHOLESTEROL 207.0 mg/dLHDL 41.0 mg/dLLDL (CALC) [...] 5.24 HGB 15.0 g/dLHCT 43.40 %MCV 83.0 [facility] 28.60 pgMCHC 34.60 g/dLRDW CV 13.10 %MPV [...] Policy Group Number Start Date BCBS [facility] [id number] N/A History of Encounters Visit Date Visit [...] Office visit JUANA MACKAY 10/02/2012 Office visit JUAAN MACKAY 08/21/2012 Office visit JUANA MACKAY 05/22/2011 Office visit Juana MACKAY-C 11/03/2010 Office visit Juana MACKAY-C 10/04/2010 Office visit Juana MAKCAY-C 08/12/2009 Laboratory Juana MACKAY-C 08/12/2009 Laboratory Juana Milligan PA-C 05/20/2009 Office visit JUANA MACKAY
--- OUTSIDE RECORDS SUMMARY | 2017-07-12 09:50 | XMS REPORT ---
Author Author PHIL MILLIGAN [facility] Address [address] [place], [place] [address] Care Team Providers Care Personal Secretary Name Role Phone PHIL MILLIGAN PCP Unavailable [...] 04/06/2016 use as directed test once daily simvastatin 80 mg oral tablet 09/14/2016 TAKE 1 TABLET BY MOUTH EVERY EVENING lisinopril-hydrochlorothiazide 20-12.5 mg oral tablet 09/20/2016 TAKE 1 TABLET BY ORAL ROUTE 2 TIMES A DAY FOR 90 DAYS Synjardy 12.5-500 mg oral tablet 03/27/2017 04/26/2017 take 1 tablet by oral route 2 times per day for 30 days Name Start Date Expiration Date SIG Comments [...] oral capsule 12/20/2015 02/13/2016 one PO TID Xigduo XR 5-1,000 mg oral tablet, IR - ER, biphasic 24hr 08/14/2016 04/08/2017 TAKE 1 TABLET BY MOUTH EVERY MORNING WITH FOOD Problem List Description Status Onset Hypertension Active Diabetes Mellitus, Type II Active Herpes Simplex Of Lip, History Active Hyperlipidemia Active Cramp of both lower extremities Active 02/13/2016 Microalbuminuria due to type 2 diabetes mellitus Active 02/13/2016 Mixed hyperlipidemia Active 04/08/2017 Type 2 diabetes mellitus without complication, without long-term current use of insulin Active 04/08/2017 Essential hypertension Active 04/08/2017 Morbid obesity due to excess calories Active 04/08/2017 Medication management Active 04/08/2017 Vital Signs Date Time BP-Sys(mm[Hg] BP-Anali(mm[Hg]) HR(bpm) RR(rpm) Temp WT HT HC BMI BSA BMI Percentile O2 Sat(%) 03/27/2017 11:26:00 AM 130 mmHg 90 mmHg 78 bpm 18 rpm 97.5 F 301 lbs 74 in 38.65 kg/m2 2.67 m2 97 % 09/21/2016 10:10:00 AM 140 mmHg 90 mmHg 76 bpm 18 rpm 96.5 F 308 lbs 74 in 39.5445 kg/m 2.7008 m 98 % 02/10/2016 8:58:00 AM 132 mmHg [...] 12:00 AM ROUTINE VENIPUNCTURE Reviewed Results Summary Date and Description Results 10/04/2010 3:48 PM TRIGLYCERIDES [...] Glu (eAG) 140 07/05/2016 3:40 PM Color [place] Size 5x3x2 Weight 34.3 Ca oxalate dihydrate AUTOCAD TECHNICIAN %Ca oxalate monohydr. AUTOCAD TECHNICIAN RatioCalcium phosphate AUTOCAD TECHNICIAN %Magnesium damian phos AUTOCAD TECHNICIAN Uric acid 100 Uric acid dihydrate AUTOCAD TECHNICIAN RatioAmmonium acid urate AUTOCAD TECHNICIAN %Sodium acid urate AUTOCAD TECHNICIAN Ca hydrogen phos. AUTOCAD TECHNICIAN %Cystine AUTOCAD TECHNICIAN %Cholesterol AUTOCAD TECHNICIAN %Calcium bilirubinate AUTOCAD TECHNICIAN %Calcium carbonate AUTOCAD TECHNICIAN %Triamterene AUTOCAD TECHNICIAN %Newberyite AUTOCAD TECHNICIAN %Dried Blood AUTOCAD TECHNICIAN Cellular Material AUTOCAD TECHNICIAN Shell AUTOCAD TECHNICIAN Surface Crystals AUTOCAD TECHNICIAN Comment AUTOCAD TECHNICIAN Comment AUTOCAD TECHNICIAN History Of Immunizations Not available. History of [...] due to type 2 diabetes mellitus 02/13/2016 Mixed hyperlipidemia 04/08/2017 Type 2 diabetes mellitus without complication, without long-term current use of insulin 04/08/2017 Essential hypertension 04/08/2017 Morbid obesity due to excess calories 04/08/2017 Medication management 04/08/2017 Coronary Artery Disease May 22 2011 8:35AM [...] driving license) exam Sep 21 2016 10:10AM Morbid obesity due to excess calories Mar 27 2017 11:26AM Dietary Counseling Mar 27 2017 11:26AM Exercise Counseling Mar 27 2017 11:26AM Type 2 diabetes mellitus with other diabetic kidney complication Mar 27 2017 11:26AM Proteinuria, unspecified Mar 27 2017 11:26AM Essential hypertension Mar 27 2017 11:26AM Type 2 diabetes mellitus without complication, without long-term current use of insulin Mar 27 2017 11:26AM Mixed hyperlipidemia Mar 27 2017 11:26AM Medication management Mar 27 2017 11:26AM Payers Insurance Name Company Name Plan Name Plan Number Policy Number Policy Group Number Start Date [facility]BS [facility] [id number] [id number] N/A History of Encounters Visit Date Visit Type Provider 03/27/2017 Office visit PHIL MACKAY 09/21/2016 Office visit PHIL MILLIGAN PA 02/10/2016 Office visit PHIL MILLIGAN PA 12/20/2015 Office visit PHIL MILLIGAN PA 09/28/2015 Office visit PHIL MILLIGAN PA 09/06/2015 Office visit Phil Shoemaker MD 08/23/2015 Office visit Phil Shoemaker MD 07/12/2015 Procedures Phil Shoemaker MD 01/11/2015 Office visit PHIL MILLIGAN PA 01/05/2015 Office visit PHIL MILLIGAN PA 11/10/2013 Office visit PHIL MILLIGAN PA 10/02/2013 Office visit PHIL MILLIGAN PA 05/28/2013 Office visit PHIL MILLIGAN PA 04/08/2013 Office visit PHIL MILLIGAN PA 04/01/2013 Office visit PHIL MILLIGAN PA 11/06/2012 Office visit PHIL MILLIGAN PA 10/07/2012 Office visit PHIL MILLIGAN PA 10/02/2012 Office visit PHIL MILLIGAN PA 08/21/2012 Office visit PHIL MILLIGAN PA 05/22/2011 Office visit Phil Milligan PA-C 11/03/2010 Office visit Phil Milligan PA-C 10/04/2010 Office visit Phil Milligan PA-C 08/12/2009 Laboratory Phil Milligan PA-C 08/12/2009 Laboratory Phil Milligan PA-C 05/20/2009 Office visit PHIL MILLIGAN PA
--- OUTSIDE RECORDS SUMMARY | 2017-07-12 09:50 | XMS REPORT | CCD ---
Author Author JOEY GREENE Organization Unknown Address [address] [place] [address] Care Team Providers Care Elevator Erector Name Role Phone ROCKY BROUSSARD MD Attphys ROCKY BROUSSARD MD Prisurg Allergies Allergy Code Allergy Type Reaction Status No Known Allergies 0 Drug allergy Active Active Medications Unknown or Not Available. Problems Unknown or Not Available. Procedures Procedure Code Procedure Type Date CT ABD AND PELVIS W/O CONTRAST 423691210 SNOMED CT 2015 CULTURE BLOOD 57898181 SNOMED CT 07/03/[address] 07/03/2016 CULTURE BLOOD 51704555 SNOMED CT 07/03/2016 C REACTIVE PROTEIN 22515414 SNOMED CT 07/03/2016 UA ROUTINE C&S IF IND 559282585 SNOMED CT 07/03/[address] 07/03/[address] 07/03/2016 COMPREHENSIVE METABOLIC PANEL 213447792 SNOMED CT 2015 CBC W/ AUTO DIFF (RFLX MAN DIFF IF IND) 2290059 SNOMED CT 07/03/2016 ^UA WITH MICRO 768665352 SNOMED CT 07/03/2016 ^CBC W/ MANUAL DIFF 30829131 SNOMED CT 07/03/2016 Results AMYLASE - Collect Date/Time: 07/03/2016 09:10 Test Name Code Test Result Test Units Test Ref Range AMYLASE 1798-8 65 IU/L L=25 H=125 COMPREHENSIVE METABOLIC PANEL - Collect Date/Time: 07/03/2016 09:10 Test Name Code Test Result Test Units Test Ref Range GLUCOSE 2345-7 189 MG/DL L=70 H=100 SODIUM 2951-2 142 MEQ/L L=135 H=148 POTASSIUM 2823-3 3.9 MEQ/L L=3.5 H=5.3 CHLORIDE 2075-0 108 MEQ/L L=96 H=110 CO2 2028-9 18 MEQ/L L=22 H=29 BUN 3094-0 19 MG/DL L=8 H=22 CREATININE 2160-0 1.1 MG/DL L=0.6 H=1.6 SGOT/AST 1920-8 18 IU/L L=10 H=40 SGPT/ALT 1742-6 26 IU/L L=8 H=54 ALK PHOS 6768-6 59 IU/L L=35 H=115 TOTAL PROTEIN 2885-2 7.0 G/DL L=5.5 H=8.5 ALBUMIN 1751-7 4.7 G/DL L=3.1 H=5.4 TOTAL BILI 1975-2 0.4 MG/DL L=0.0 H=1.5 CALCIUM 76145-9 9.6 MG/DL L=8.2 H=10.6 AGE 45 yrs GFR NonAA 73 GFR AA 88 eGFR >60 N/A eGFR AA* >60 N/A LIPASE - Collect Date/Time: 07/03/2016 09:10 Test Name Code Test Result Test Units Test Ref Range LIPASE 3040-3 19 U/L L=8 H=78 CBC W/ AUTO DIFF (RFLX MAN DIFF IF IND) - Collect Date/Time: 07/03/2016 09:10 Test Name Code Test Result Test Units Test Ref Range WBC 40097-6 14.3 TH/CMM L=4.5 H=10.8 RBC 789-8 5.44 ML/CMM L=4.70 H=6.10 HGB 718-7 15.5 G/DL L=14.0 H=18.0 HCT 4544-3 44.4 % L=42.0 H=52.0 MCV 82 FL L=81 H=99 MCH 28.5 PG L=27.0 H=33.0 MCHC 34.9 G/DL L=31.0 H=36.0 RDW SD 37 FL L=36 H=50 RDW CV 12.8 % L=0.0 H=14.8 MPV 10.0 FL L=9.3 H=12.5 PLT 777-3 190 TH/CMM L=130 H=440 NRBC# 0.00 TH/CMM L=0.00 H=0.00 NRBC% 0.0 /100WBC L=0.0 H=2.0 %NEUT 88.1 % %LYMP 5.9 % %MONO 5.3 % %EOS 0.1 % %BASO 0.2 % #NEUT 12.59 TH/CMM L=2.10 H=8.20 #LYMP 0.84 TH/CMM L=0.90 H=5.20 #MONO 0.76 TH/CMM L=0.16 H=1.00 #EOS 0.01 TH/CMM L=0.00 H=0.80 #BASO 0.03 TH/CMM L=0.00 H=0.20 SEGS 83 % BANDS 7 % LYMPHS 10 % MANUAL DIFF SEE BELOW N/A UA ROUTINE C&S IF IND - Collect Date/Time: 07/03/2016 10:55 Test Name Code Test Result Test Units Test Ref Range COLOR BROWN N/A NL: YELLOW APPEARANCE CLOUDY N/A NL: CLEAR SPEC GRAV 1.025 N/A NL: 1.002 - 1.022 pH 5.0 N/A NL: 5 - 9 PROTEIN TRACE N/A NL: NEGATIVE mg/dl GLUCOSE >=1000 N/A NL: NEGATIVE mg/dl KETONE TRACE N/A NL: NEGATIVE mg/dl BILIRUBIN NEGATIVE N/A NL: NEGATIVE BLOOD LARGE N/A NL: NEGATIVE NITRITE NEGATIVE N/A NL: NEGATIVE LEUK SCREEN NEGATIVE N/A NL: NEGATIVE MICRO INDICATED? SEE BELOW N/A WBC/HPF 0-5 N/A NL: NEGATIVE RBC/HPF 300-500 N/A NL: NEGATIVE CASTS/LPF NEGATIVE N/A NL: NEGATIVE CRYSTALS NEGATIVE N/A NL: NEGATIVE MUCOUS THRDS NEGATIVE N/A NL: NEGATIVE BACTERIA FEW N/A NL: NEGATIVE EPITH CELLS NEGATIVE N/A NL: NEGATIVE TRICHOMONAS NEGATIVE N/A NL: NEGATIVE YEAST NEGATIVE N/A NL: NEGATIVE CULT SET UP? NO N/A C REACTIVE PROTEIN - Collect Date/Time: 07/03/2016 09:10 Test Name Code Test Result Test Units Test Ref Range C REACTIVE PROTEIN 1988-5 0.5 MG/DL L=0.0 H= 1.0 LACTIC ACID - Collect Date/Time: 07/03/2016 09:35 Test Name Code Test Result Test Units Test Ref Range LACTIC ACID 2524-7 2.0 mmol/L L=0.5 H=1.6 Function Status Unknown or Not Available. History of Immunizations Unknown or Not Available. Plan of Treatment Unknown or Not Available. Social History Smoking Status Code Start Date End Date Never smoker [id number] Vital Signs Unknown or Not Available. Function Status Unknown or Not Available. Goals Unknown or Not Available. ASSESSMENTS Unknown or Not Available. Health Concerns Section Unknown or Not Available.
--- OUTSIDE RECORDS SUMMARY | 2017-07-12 09:52 | XMS REPORT ---
Author Author [facility] Organization [facility] Address [address] [place], [place] [address] Care Team Providers Care Naval Gunfire Spotter Name Role Phone PCP Unavailable Allergies and Adverse Reactions Name Reaction Notes NO KNOWN DRUG ALLERGIES Plan of Treatment Not available. Medications Active Name Start Date Estimated Completion Date SIG Comments simvastatin oral tablet 80 mg 06/09/2014 TAKE 1 TABLET BY MOUTH EVERY EVENING lisinopril-hydrochlorothiazide oral tablet 20-12.5 mg 06/17/2014 06/12/2015 take 1 tablet by oral route 2 times a day for 90 days Contrave oral tablet extended release 8-90 mg 01/12/2015 04/12/2015 take 2 tablets by oral route 2 times per day in the morning and evening for 30 days Name Start Date Expiration Date SIG Comments Keflex Oral Capsule 500 mg 09/22/2010 10/02/2010 take 1 capsule by oral route 3 times a day for 10 days Zocor Oral Tablet 80 mg 10/18/2010 04/16/2011 take 1 tablet (80 mg) by oral route once daily in the evening for 90 days valacyclovir Oral Tablet 500 mg 05/18/2011 USE DIRECTED Medrol (Carter) Oral Tablets, Dose Pack 4 mg 11/10/2011 11/16/2011 take as directed for 6 days Zithromax Z-Catrer Oral Tablet 250 mg 08/21/2012 08/26/2012 take 2 tablets ( 500 mg) by oral route once daily for 1 day then 1 tablet (250 mg) by oral route once daily for 4 days Discontinued Name Start Date Discontinued Date SIG Comments Pravastatin Oral Tablet 40 mg 10/04/2010 10/18/2010 TAKE 1 &1/2 TABLETS BY [...] BILI 0.40 mg/dLCALCIUM 9.80 mg/dLeGFR >60 mL/min/1.73 [id number] 226.0 mg/dLCHOLESTEROL 207.0 mg/dLHDL 41.0 mg/dLLDL (CALC) 121.0 mg/dL 10/02/2012 10:00 AM WBC 7.7 RBC 5.20 HGB 14.80 g/dLHCT 42.60 %MCV 82.0 fLMCH 28.50 pgMCHC 34.70 g/dLRDW CV 12.90 %MPV 10.70 fLPLT 198 %NEUT 71.20 %%LYMP 21.10 %%MONO 6.10 %%EOS 1.30 %%BASO 0.30 %#NEUT 5.50 #LYMP 1.63 #MONO 0.47 #EOS 0.10 #BASO 0.02 GLYCOHEMOGLOBIN A1C 7.30 %GLUCOSE 159.0 mg/dLSODIUM 141.0 mmol/ LPOTASSIUM 3.90 mmol/LCHLORIDE 105.0 mmol/LCO2 23.0 mmol/LBUN 19.0 mg/ dLCREATININE 1.0 mg/dLSGOT/AST 16.0 IU/LSGPT/ALT 28.0 IU/LALK PHOS 59.0 IU/ LTOTAL PROTEIN 7.0 g/dLALBUMIN 4.50 g/dLTOTAL BILI 0.70 mg/dLCALCIUM 9.70 mg/ dLeGFR 60 TRIGLYCERIDES 236.0 mg/dLCHOLESTEROL 247.0 mg/dLHDL 38.0 mg/dLLDL 170.0 mg/dL 04/01/2013 3:41 PM TRIGLYCERIDES 184.0 mg/dLCHOLESTEROL 202.0 mg/dLHDL 40.0 mg/ dLLDL 132.0 mg/dLGLUCOSE 123.0 mg/dLSODIUM 141.0 mmol/LPOTASSIUM 3.80 mmol/ LCHLORIDE 107.0 mmol/LCO2 24.0 mmol/LBUN 19.0 mg/dLCREATININE 0.80 mg/dLSGOT/ AST 16.0 IU/LSGPT/ALT 23.0 IU/LALK PHOS 51.0 IU/LTOTAL PROTEIN 6.90 g/dLALBUMIN 4.10 g/dLTOTAL BILI 0.80 mg/dLCALCIUM 9.60 mg/dLeGFR 60 HGB A1C 6.0 % 11/10/2013 3:53 PM CREAT UR 193.10 mg/dLMICROALBUMIN [...] #BASO 0.02 EOS 1.0 %HGB A1C 5.80 % 01/05/2015 3:20 PM WBC 6.8 RBC 5.24 [...] 9.80 mg/dLeGFR >60 mL/min/1.73 m2HGB A1C 6.0 % History Of Immunizations Not available. History of Past Illness Name Date of Onset Comments Hypertension Diabetes Mellitus, Type II Herpes Simplex Of Lip, History Hyperlipidemia Coronary Artery Disease [place] 25 2011 8:49AM Hypertension Oct 04 2010 8:49AM Hyperlipidemia [...] 2015 1:54PM Hyperlipidemia Jan 11 2015 1:54PM Payers Insurance Name Company Name Plan Name Plan Number Policy Number Policy Group Number Start Date Bcbs [facility] [id number] N/A History of Encounters Visit Date Visit Type Provider 01/11/2015 Office visit PHIL MACKAY 01/05/2015 Office visit PHIL MACKAY 11/10/2013 Office visit PHIL MACEDO PA 10/02/2013 Office visit PHIL MACKAY 05/28/2013 Office visit PHIL MACKAY 04/08/2013 Office visit PHIL MACKAY 04/01/2013 Office visit PHIL MACKAY 11/06/2012 Office visit PHIL MACKAY 10/07/2012 Office visit PHIL MACKAY 10/02/2012 Office visit PHIL MACKAY 08/21/2012 Office visit PHIL MACKAY 05/22/2011 Office visit Phil Macedo PA-C 11/03/2010 Office visit Phil Macedo PA-C 10/04/2010 Office visit Phil Macedo PA-C 08/12/2009 Laboratory Phil Macedo PA-C 08/12/2009 Laboratory Phil Macedo PA-C 05/20/2009 Office visit PHIL MACKAY
--- OUTSIDE RECORDS SUMMARY | 2017-07-12 09:52 | XMS REPORT ---
Author Author PHIL MILLIGAN [facility] Address [address] [place], [place] [address] Care Team Providers Care Environmental Property Assessor Name Role Phone PHIL MILLIGAN PCP Unavailable [...] 90 DAYS Synjardy 12.5-500 mg oral tablet 04/10/2017 08/08/2017 take 1 tablet by oral route 2 [...] HC BMI BSA BMI Percentile O2 Sat(%) 04/16/2017 11:34:00 AM 158 mmHg 84 mmHg 84 bpm 16 rpm 98.2 F 305 lbs 74 in 39.16 kg/m2 2.69 m2 97 % 03/27/2017 11:26:00 AM 130 mmHg 90 mmHg 78 bpm 18 rpm 97.5 F 301 lbs 74 in 38.6457 kg/m 2.6699 m 97 % 09/21/2016 10:10:00 AM 140 mmHg [...] Glu (eAG) 140 07/05/2016 3:40 PM Color [place] Size 5x3x2 Weight 34.3 Ca oxalate dihydrate INDUSTRIAL RELATIONS MANAGER %Ca oxalate monohydr. INDUSTRIAL RELATIONS MANAGER RatioCalcium phosphate INDUSTRIAL RELATIONS MANAGER %Magnesium damian phos INDUSTRIAL RELATIONS MANAGER Uric acid 100 Uric acid dihydrate INDUSTRIAL RELATIONS MANAGER RatioAmmonium acid urate INDUSTRIAL RELATIONS MANAGER %Sodium acid urate INDUSTRIAL RELATIONS MANAGER Ca hydrogen phos. INDUSTRIAL RELATIONS MANAGER %Cystine INDUSTRIAL RELATIONS MANAGER %Cholesterol INDUSTRIAL RELATIONS MANAGER %Calcium bilirubinate INDUSTRIAL RELATIONS MANAGER %Calcium carbonate INDUSTRIAL RELATIONS MANAGER %Triamterene INDUSTRIAL RELATIONS MANAGER %Newberyite INDUSTRIAL RELATIONS MANAGER %Dried Blood INDUSTRIAL RELATIONS MANAGER Cellular Material INDUSTRIAL RELATIONS MANAGER Shell INDUSTRIAL RELATIONS MANAGER Surface Crystals INDUSTRIAL RELATIONS MANAGER Comment INDUSTRIAL RELATIONS MANAGER Comment INDUSTRIAL RELATIONS MANAGER History Of Immunizations Not available. History of [...] 11:26AM Medication management Mar 27 2017 11:26AM Essential hypertension Apr 16 2017 11:34AM Medication management Apr 16 2017 11:34AM Mixed hyperlipidemia Apr 16 2017 11:34AM Morbid obesity due to excess calories Apr 16 2017 11:34AM Type 2 diabetes mellitus without complication, without long-term current use of insulin Apr 16 2017 11:34AM Payers Insurance Name Company Name Plan Name Plan Number Policy Number Policy Group Number Start Date BCBS [facility] [place] [id number] N/A BCBS [facility] [place] [id number] N/A History of Encounters Visit Date Visit Type Provider 04/16/2017 Laboratory PHIL MACKAY 03/27/2017 Office visit PHIL MACKAY 09/21/2016 Office visit PHIL MACKAY 02/10/2016 Office visit PHIL MACKAY 12/20/2015 Office visit PHIL MACKAY 09/28/2015 Office visit PHIL MACKAY 09/06/2015 Office visit Phil Shoemaker MD 08/23/2015 Office visit Phil Shoemaker MD 07/12/2015 Procedures Phil Shoemaker MD 01/11/2015 Office visit PHIL MACKAY 01/05/2015 Office visit PHIL MACKAY 11/10/2013 Office visit PHIL MILLIGAN PA 10/02/2013 Office visit PHIL MACKAY 05/28/2013 Office visit PHIL MACKAY 04/08/2013 Office visit PHIL MACKYA 04/01/2013 Office visit PHIL MILLIGAN PA 11/06/2012 [...]
--- OUTSIDE RECORDS SUMMARY | 2017-07-12 09:53 | XMS REPORT ---
Author JUANA Fowler [facility] Address [address] [place], [place] [id number] Care Team Providers Care Recovery Coordinator Name Role Phone JUANA MILLIGAN PCP Unavailable [...] BILI 0.40 mg/dLCALCIUM 9.80 mg/dLeGFR >60 mL/min/1.73 [id number] 226.0 mg/dLCHOLESTEROL 207.0 mg/dLHDL 41.0 mg/dLLDL (CALC) [...] %MCV 84.0 fLMCH 28.20 pgMCHC 33.60 g/dLRDW CV 13.10 %MPV 10.50 fLPLT 187 %NEUT 67.80 %%LYMP 22.80 %%MONO 7.30 %%EOS 1.30 %%BASO 0.50 %#NEUT 4.24 #LYMP 1.43 #MONO 0.46 #EOS 0.08 #BASO 0.03 MICROALBUMIN UR 59.0 ug/mLGLUCOSE 146.0 mg/dLSODIUM 140.0 mmol/ LPOTASSIUM 4.30 mmol/LCHLORIDE 103.0 mmol/LCO2 27.0 mmol/LBUN 20.0 mg/ dLCREATININE 0.90 mg/dLSGOT/AST 19.0 IU/LSGPT/ALT 34.0 IU/LALK PHOS 57.0 IU/ LTOTAL PROTEIN 6.70 g/dLALBUMIN 4.70 g/dLTOTAL BILI 0.70 mg/dLCALCIUM 9.60 mg/ dLeGFR >60 mL/min/1.73mTRIGLYCERIDES 198.0 mg/dLCHOLESTEROL 259.0 mg/dLHDL 48.0 mg/dLLDL 175.0 mg/dLHemoglobin A1c 6.50 % History Of Immunizations Not available. History [...] 2 diabetes mellitus Feb 10 2016 8:59AM Payers Insurance Name Company Name Plan Name Plan Number Policy Number Policy Group Number Start Date BCBS Bcbs [facility] [id number] N/A History of Encounters Visit Date Visit [...] visit JUANA MACKAY 11/06/2012 Office visit JUANA MILLIGAN PA 10/07/2012 Office visit JUANA MILLIGAN PA 10/02/2012 Office visit JUANA MACKAY 08/21/2012 Office visit JUANA MACKAY 05/22/2011 Office visit Juana Milligan PA-C 11/03/2010 Office visit Juana Milligan PA-C 10/04/2010 Office visit Juana Milligan PA-C 08/12/2009 Laboratory Juana Milligan PA-C 08/12/2009 Laboratory Juana Milligan PA-C 05/20/2009 Office visit JUANA MACKAY
--- OUTSIDE RECORDS SUMMARY | 2017-07-12 09:54 | XMS REPORT ---
Author Author Juana Shoemaker [facility] Address [address] [place], [place] [id number] Care Team Providers Care Instrument Installer Name Role Phone Juana Shoemaker PCP Unavailable [...] BILI 0.40 mg/dLCALCIUM 9.80 mg/dLeGFR >60 mL/min/1.73 [id number] 226.0 mg/dLCHOLESTEROL 207.0 mg/dLHDL 41.0 mg/dLLDL (CALC) [...] Abscess Of Trunk Jul 12 2015 12:08PM Payers Insurance Name Company Name Plan Name Plan Number Policy Number Policy Group Number Start Date Bcbs Bcbs [facility] [id number] N/A History of Encounters Visit Date Visit Type Provider 07/12/2015 Procedures Juana Shoemaker MD 01/11/2015 Office [...] visit Juana ANGELOC 11/03/2010 Office visit Juana ANGELOC 10/04/2010 Office visit Juana ANGELOC 08/12/2009 Laboratory Juana ANGELOC 08/12/2009 Laboratory Juana Macedo PA-C 05/20/2009 Office visit JUANA MACKAY
--- OUTSIDE RECORDS SUMMARY | 2017-07-12 09:54 | XMS REPORT ---
Author Author [facility] Organization [facility] Address [address] [place], [place] [phone] Care Team Providers Care Superintendent Of Generation Name Role Phone PCP Unavailable Allergies and [...] as directed for 6 days Zithromax Z-Carter Oral Tablet 250 mg 08/21/2012 08/26/2012 take [...] BILI 0.40 mg/dLCALCIUM 9.80 mg/dLeGFR >60 mL/min/1.73 [id number] 226.0 mg/dLCHOLESTEROL 207.0 mg/dLHDL 41.0 mg/dLLDL (CALC) [...] Number Policy Group Number Start Date Bcbs [facility] [id number] N/A History of Encounters Visit Date Visit Type Provider 01/11/2015 Office visit PHIL MACKYA 01/05/2015 Office visit PHIL MACKAY 11/10/2013 Office visit PHIL MACEDO PA 10/02/2013 Office visit PHIL MACKAY 05/28/2013 Office visit PHIL MACKAY 04/08/2013 Office visit PHIL MACKYA 04/01/2013 Office visit PHIL MACKAY 11/06/2012 Office [...]
--- OUTSIDE RECORDS SUMMARY | 2017-07-12 09:55 | XMS REPORT ---
Author Author [facility] Organization [facility] Address [address] [place], [place] [phone] Care Team Providers Care System Validation Engineer Name Role Phone PCP Unavailable Allergies and [...] BILI 0.40 mg/dLCALCIUM 9.80 mg/dLeGFR >60 mL/min/1.73 [id number] 226.0 mg/dLCHOLESTEROL 207.0 mg/dLHDL 41.0 mg/dLLDL (CALC) [...] Number Policy Group Number Start Date Bcbs [facility] [id number] N/A History of Encounters Visit Date Visit [...]
--- OUTSIDE RECORDS SUMMARY | 2017-07-12 09:55 | XMS REPORT ---
Author Author Juana Shoemaker [facility] Address [address] [place], [place] [phone] Care Team Providers Care Balance Staff Inspector Name Role Phone Juana Shoemaker PCP Unavailable [...] BILI 0.40 mg/dLCALCIUM 9.80 mg/dLeGFR >60 mL/min/1.73 [id number] 226.0 mg/dLCHOLESTEROL 207.0 mg/dLHDL 41.0 mg/dLLDL (CALC) [...] 10:20AM Postoperative Follow-up Sep 06 2015 8:58AM Payers Insurance Name Company Name Plan Name Plan Number Policy Number Policy Group Number [id number] N/A History of Encounters Visit Date Visit Type Provider 09/06/2015 Office visit Juana Shoemaker MD 08/23/2015 [...] visit JUANA MACKAY 05/22/2011 Office visit Juana Macedo PA-C 11/03/2010 Office visit Juana Macedo PA-C 10/04/2010 Office visit Juana Macedo PA-C 08/12/2009 Laboratory Juana Macedo PA-C 08/12/2009 Laboratory Juana Macedo PA-C 05/20/2009 Office visit JUANA MACKAY
--- OUTSIDE RECORDS SUMMARY | 2017-07-12 09:56 | XMS REPORT ---
Author JUANA Fowler [facility] Address [address] [place], [place] [phone] Care Team Providers Care District Court Justice Name Role Phone JUANA MILLIGAN PCP Unavailable [...] BILI 0.40 mg/dLCALCIUM 9.80 mg/dLeGFR >60 mL/min/1.73 [id number] 226.0 mg/dLCHOLESTEROL 207.0 mg/dLHDL 41.0 mg/dLLDL (CALC) [...] Policy Group Number Start Date BCBS Bcbs [facility] [id number] N/A History of Encounters Visit Date Visit [...]
--- OUTSIDE RECORDS SUMMARY | 2017-07-12 09:57 | XMS REPORT ---
Author Author JUANA MILLIGAN [facility] Address [address] [place], [place] [phone] Care Team Providers Care Chief Diversity Officer Name Role Phone JUANA MILLIGAN PCP Unavailable Allergies and Adverse Reactions Name Reaction Notes NO KNOWN DRUG ALLERGIES Plan of Treatment Planned Activity Comments Planned Date Planned Time Plan/Goal CALCULUS SPECTROSCOPY 07/05/2016 12:00 AM Medications Active Name Start Date Estimated Completion [...] 04/06/2016 use as directed test once daily Name Start Date Expiration Date SIG Comments [...] BILI 0.40 mg/dLCALCIUM 9.80 mg/dLeGFR >60 mL/min/1.73 [id number] 226.0 mg/dLCHOLESTEROL 207.0 mg/dLHDL 41.0 mg/dLLDL (CALC) [...] >60 mL/min/1.73 m2Est Avg Glucose 125.5 mg/dL 02/10/2016 4:00 PM [...] 198.0 mg/dLCHOLESTEROL 259.0 mg/dLHDL 48.0 mg/dLLDL 175.0 mg/dL History Of Immunizations Not available. History [...] 8:59AM Calculus (=stone) Jul 05 2016 8:49AM Payers Insurance Name Company Name Plan Name Plan Number Policy Number Policy Group Number [facility] Date [facility] [id number] N/A History of Encounters Visit Date Visit [...]
--- OUTSIDE RECORDS SUMMARY | 2017-07-12 09:57 | XMS REPORT ---
Author Author [facility] Organization [facility] Address [address] [place], [place] [phone] Care Team Providers Care Bullion Weigher Name Role Phone PCP Unavailable Allergies and Adverse Reactions Name Reaction Notes NO KNOWN DRUG ALLERGIES Plan of Treatment Planned Activity Comments Planned Date Planned Time Plan/Goal COMPLETE CBC W/AUTO DIFF WBC 01/05/2015 12:00 AM COMPREHEN METABOLIC PANEL 01/05/2015 12:00 AM GLYCOSYLATED HEMOGLOBIN TEST 01/05/2015 12:00 AM LIPID PANEL 01/05/2015 12:00 AM Medications Active Name Start Date Estimated Completion Date SIG Comments simvastatin oral tablet 80 mg 06/09/2014 TAKE 1 TABLET BY MOUTH EVERY EVENING lisinopril-hydrochlorothiazide oral tablet 20-12.5 mg 06/17/2014 06/12/2015 take 1 tablet by oral route 2 times a day for 90 days Name Start Date Expiration Date SIG [...] HC BMI BSA BMI Percentile O2 Sat(%) 10/02/2013 2:13:00 PM 134 mmHg 78 mmHg [...] Reviewed 10/04/2010 12:00 AM LIPID PANEL Reviewed Results Summary Data and Description Results [...] BILI 0.40 mg/dLCALCIUM 9.80 mg/dLeGFR >60 mL/min/1.73 [id number] 226.0 mg/dLCHOLESTEROL 207.0 mg/dLHDL 41.0 mg/dLLDL (CALC) [...] 0.02 EOS 1.0 %HGB A1C 5.80 % History Of Immunizations Not available. History [...] 2015 11:34AM Hyperlipidemia Jan 05 2015 11:34AM Payers Insurance Name Company Name Plan Name Plan Number Policy Number Policy Group Number Start Date Bcbs Bcbs [facility] [id number] N/A History of Encounters Visit Date Visit Type Provider 01/05/2015 Office visit JUANA MACKAY 11/10/2013 Office visit JUANA MACKAY 10/02/2013 Office visit JUANA MACKAY 05/28/2013 Office visit JUANA MACKAY 04/08/2013 Office visit JUANA MACKAY 04/01/2013 Office visit JUANA MACKAY 11/06/2012 Office visit JUANA MACKAY 10/07/2012 Office visit JUANA MACKAY 10/02/2012 Office visit JUANA MACKAY 08/21/2012 Office visit JUANA MACKAY 05/22/2011 Office visit Juana ANGELOC 11/03/2010 Office visit Juana MACKAY-C 10/04/2010 Office visit Juana ANGELOC 08/12/2009 Laboratory Juana MACKAY-C 08/12/2009 Laboratory Juana MACKAY-C 05/20/2009 Office visit JUANA MACKAY
--- OUTSIDE RECORDS SUMMARY | 2017-07-12 09:58 | XMS REPORT ---
Author JUANA Fowler [facility] Address [address] [place], [place] [phone] Care Team Providers Care Heating And Blending Supervisor Name Role Phone JUANA MILLIGAN PCP Unavailable [...] BILI 0.40 mg/dLCALCIUM 9.80 mg/dLeGFR >60 mL/min/1.73 [id number] 226.0 mg/dLCHOLESTEROL 207.0 mg/dLHDL 41.0 mg/dLLDL (CALC) [...] Policy Group Number Start Date BCBS Bcbs [facility] [id number] N/A History of Encounters Visit Date Visit [...]
--- OUTSIDE RECORDS SUMMARY | 2017-07-12 09:58 | XMS REPORT | Continuity of Care Document ---
Author Author [facility] Organization [facility] Address Unknown Phone Unavailable Allergies Medications Problems Procedures Results Encounters ACCT No. Visit Date/Time Discharge Status Pt. Type Provider Facility Loc./Unit Complaint [id number] 04/16/2017 08:33:42 04/16/2017 23: 59:59 JOHN Outpatient JUANA MILLIGAN [id number] 03/27/2017 09:39:57 03/27/2017 23: 59:59 JUANA Light [id number] 09/21/2016 09:03:57 09/21/2016 23: 59:59 JUANA Light [id number] 09/28/2015 09:38:34 09/28/2015 23: 59:59 JUANA Light [id number] 09/06/2015 09:48:58 09/06/2015 23: 59:59 JOHN Outpatient Juana Shoemaker [id number] 08/23/2015 11:15:29 08/23/2015 23: 59:59 JOHN Outpatient Juana Shoemaker [id number] 07/12/2015 12:25:29 07/12/2015 23: 59:59 Juana Ma [id number] 01/11/2015 14:05:38 01/11/2015 23: 59:59 JUANA Light [id number] 01/05/2015 08:49:16 01/05/2015 23: 59:59 JUANA Light [id number] 11/10/2013 09:14:46 11/10/2013 23: 59:59 JUANA Light [id number] 10/02/2013 14:36:54 10/02/2013 23: 59:59 JUANA Light
[2017-07-12] MEDS ORDERED: ceFAZolin 2 GM/NS 50 ML IV ONE (10:15)
[2017-07-12] MEDS ORDERED: CATHETER FLUSH 10 ML SYR IV PRN (10:15)
--- NOTE | 2017-07-12 10:45 | Progress Note-Pre Operative ---
Pre-Operative Progress Note H&P Reviewed The H&P was reviewed, patient examined and no changes noted. Date Seen by Provider: Jul 12, 2017 Time Seen by Provider: 10:44 Date H&P Reviewed: Jul 12, 2017 Time H&P Reviewed: 10:44 Pre-Operative Diagnosis: KERATOACANTHOMA LEFT HAND KENDRICK VERDUZCO DO Jul 12, 2017 10:45
--- NOTE | 2017-07-12 11:16 | Progress Note-Post Operative ---
Post-Operative Progess Note Surgeon (s)/Snout Puller (s) Surgeon KENDRICK VERDUZCO DO Snout Puller: NA Pre-Operative Diagnosis KERATOACANTHOMA LEFT HAND Post-Operative Diagnosis SAME Procedure & Operative Findings Date of Procedure 07/12/17 Procedure Performed/Findings EXCISION LEFT HAND SKIN LESION 1.5X2.9CM Anesthesia Type MAC C LOCAL Estimated Blood Loss Estimated blood loss (mL): MIN Specimens/Packing Specimens Removed SKIN LESION LEFT HAND KENDRICK VERDUZCO DO Jul 12, 2017 11:16
--- NOTE | 2017-07-12 11:19 | Discharge Inst-Simple/Standard ---
Discharge Inst-Standard Patient Instructions/Follow Up Plan of Care/Instructions/FU: 10 DAYS DAX KEEP AREA CLEAN AND DRY. Activity as Tolerated: Yes Discharge Diet: Regular Diet Other Inst to Patient Follow up Appt: Make appointment for 10 DAYS Instructions:. No strenuous activity LEFT HAND. May shower, no tub bath or soaking. No Smoking Skin/Wound Care: May remove bandages IN 2 4 HOURS, KEEP CLEAN AND DRY. Symptoms to Report: Appetite Changes, Extremity Discoloration, Numbness/Tingling, Swelling Increased , Bleeding Excessive, Eyesight Changes, Pain Increased, Urine Color Change, Constipation(Persistent), Fever over 101 degree F, Pain/Pressure in chest, Urinating Difficulty, Cough Up/Vomit Blood, Heart Beat Irreg/Pounding, Pain/ Pressure in jaw, Vaginal Bleeding Increase, Cramps in feet or legs, Lightheadedness, Pain/Pressure in shoulder, Diarrhea(Persistent), Memory Changes Suddenly, Questions/Concerns, Weight gain consecutive days, Dizziness/ Fainting, Nausea/Vomiting, Shortness of Breath, Weight gain over 2 pounds If questions or concerns contact your physician Or seek help at emergency department. KENDRICK VERDUZCO DO Jul 12, 2017 11:19
[2017-07-12] MEDS ORDERED: morphine INJ 10 MG/ML 1ML (SYR OR VIAL) IVP PRN (11:30)
[2017-07-12 11:45] VITALS: BP 114/76
[2017-07-12 12:15] VITALS: BP 119/72
[2017-07-12 12:45] VITALS: BP 125/71
[2017-07-12 12:50] VITALS: BP 125/71
--- NOTE | 2017-07-13 08:33 | OPERATIVE REPORT ---
DATE OF SERVICE: 07/12/2017 PREOPERATIVE DIAGNOSIS: Keratoacanthoma, left hand. POSTOPERATIVE DIAGNOSIS: Keratoacanthoma, left hand. PROCEDURE: Excision of the left hand skin lesion, 1.5 x 2.9 cm. SURGEON: Kendrick Estrella DO ANESTHESIA: MAC with local. ESTIMATED BLOOD LOSS: Minimal. COMPLICATIONS: None. INDICATIONS FOR PROCEDURE: The patient is a 46-year-old male with previous biopsy, which demonstrated keratoacanthoma, was not completely excised, cannot rule out squamous cell carcinoma. Risks and benefits of procedure were discussed with the patient who wished to proceed with procedure. Consent was signed in the chart. DESCRIPTION OF PROCEDURE: The patient was taken to the operating suite, was prepped and draped in sterile fashion. Surgical pause was performed. Local anesthetic of 0.5% Marcaine and 1% lidocaine 50:50 ratio was used to anesthetize the area. An elliptical incision measuring 1.5 x 2.9 cm was made around the lesion and the skin and subcutaneous tissue was then removed. The wound was then irrigated with copious amounts of irrigation. Hemostasis had been achieved. The skin was then closed using 3-0 nylon in a simple interrupted fashion. The specimen was labeled with a long suture lateral and a short suture proximal. The area was then washed and dried, sterile bandage was applied. The patient tolerated the procedure well without any complications and taken to recovery room in stable condition. Job ID: [id number] DocumentID: [id number] Dictated Date: 07/12/2017 13:08:26 Speedboat Driver Date: 07/12/2017 20:53:51 Dictated By: KENDRICK ESTRELLA DO
== END 2017-07-12 12:50 | disposition home or self-care (01) ==
LOC: SDC 09:13
PROVIDERS: ATTEND Surgery
DX: L85.8 Other specified epidermal thickening (principal); E11.9 Type 2 diabetes mellitus without complications; I10 Essential (primary) hypertension; E66.01 Morbid (severe) obesity due to excess calories; Z68.37 Body mass index [BMI] 37.0-37.9, adult; Z79.899 Other long term (current) drug therapy
CPT/HCPCS: 82962; 87081